=== PATIENT | female | born 1960 | race Hispanic/Latino ===

== ENCOUNTER → 2024-01-01 07:52 | Outpatient (REF) | payer OTHER, SELFPAY | LOC: RST 07:52 | PROVIDERS: ATTENDING PHYSICIAN Internal Medicine Gastroenterology; FAMILY PHYSICIAN Family Medicine | DX: T17.908A Unspecified foreign body in respiratory tract, part unspecified causing other injury, initial encounter (principal) | CPT/HCPCS: 74230; 92611 ==